=== PATIENT | male | born 1965 | race Caucasian/White ===

== ENCOUNTER 2018-03-26 12:07 | Emergency (ER) | payer OTHER ==
[2018-03-26] MEDS: ONDANSETRON (ODT) 4 MG TAB ODT (12:38)
[2018-03-26] MEDS: HYDROCODONE/APAP (5/325) TAB PO (12:39)
[2018-03-26] MEDS: IBUPROFEN 800 MG TAB PO (13:41)
== END 2018-03-26 14:01 | disposition home or self-care (01) ==
LOC: FTE 12:07
DX: S82.832A Other fracture of upper and lower end of left fibula, initial encounter for closed fracture (principal); X58.XXXA Exposure to other specified factors, initial encounter; Y92.480 Sidewalk as the place of occurrence of the external cause
CPT/HCPCS: 29515; 73562; 73610; 73630-LT; 99283-25

== ENCOUNTER 2018-05-12 16:33 | Emergency (ER) | payer OTHER | END 2018-05-12 20:39 | disposition home or self-care (01) | LOC: FTE 16:33 | DX: Z46.89 Encounter for fitting and adjustment of other specified devices (principal); F17.210 Nicotine dependence, cigarettes, uncomplicated | CPT/HCPCS: 73610; 99283-25 ==

== ENCOUNTER 2018-09-05 10:41 | Emergency (ER) | payer OTHER ==
[2018-09-05] MEDS: SOD CHLORIDE 0.9% 1,000 ML IV (11:14)
[2018-09-05] MEDS: ONDANSETRON 4 MG INJ IV (11:14)
[2018-09-05] MEDS: HYDROmorphONE 1 MG/ML SYG IV (11:15)
[2018-09-05 11:20] LABS: ADD MAN DIFF? NO
[2018-09-05 11:24] LABS: BASOPHIL # 0.1 10^3/ul (0.0-0.1); BASOPHILS % 0.5 % (0.0-2.0); EOSINOPHILS # 0.2 10^3/ul (0.0-0.5); EOSINOPHILS % 1.2 % (0.0-7.0); HEMOGLOBIN 15.8 g/dl (14.0-18.0); LYMPHOCYTES # 2.8 10^3/ul (0.8-2.9); LYMPHOCYTES % 16.4 % (15.0-51.0); MEAN CORPUSCULAR HEMOGLOBIN 29.4 pg (29.0-33.0); MEAN CORPUSCULAR HGB CONC 32.9 g/dl (32.0-37.0); MEAN CORPUSCULAR VOLUME 89.4 fl (82.0-101.0); MEAN PLATELET VOLUME 10.7 fl (7.4-10.4); MONOCYTE # 0.7 10^3/ul (0.3-0.9); MONOCYTES % 3.8 % (0.0-11.0); NEUTROPHIL # 13.1 10^3/ul (1.6-7.5); NEUTROPHILS % 77.6 % (39.0-77.0); PLATELET COUNT 186 10^3/UL (140-415); RED BLOOD COUNT 5.37 10^6/ul (4.70-6.10); RED CELL DISTRIBUTION WIDTH 14.4 % (11.5-14.5)
[2018-09-05 11:24] LABS: WHITE BLOOD COUNT 16.9 10^3/ul (4.8-10.8)
[2018-09-05 11:44] LABS: ALANINE AMINOTRANSFERASE 30 IU/L (13-69); ALBUMIN 4.6 g/dl (3.3-4.9); ALBUMIN/GLOBULIN RATIO 1.43; ALKALINE PHOSPHATASE 76 IU/L (42-121); ANION GAP 12 (5-13); ASPARTATE AMINO TRANSFERASE 26 IU/L (15-46); BILIRUBIN,INDIRECT 0.2 mg/dl (0-1.1); BILIRUBIN,TOTAL 0.2 mg/dl (0.2-1.3); BLOOD UREA NITROGEN 21 mg/dl (7-20); CARBON DIOXIDE 24 mmol/L (21-31); CHLORIDE 103 mmol/L (97-110); CREATININE 0.84 mg/dl (0.61-1.24); Estimated GFR > 60 mL/min (>60); GLUCOSE 139 mg/dl (70-220); LIPASE 99 U/L (23-300); POTASSIUM 4.9 mmol/L (3.5-5.1); SODIUM 139 mmol/L (135-144); TOTAL PROTEIN 7.8 g/dl (6.1-8.1)
[2018-09-05 11:48] LABS: LACTIC ACID 2.7 mmol/L (0.5-2.0)
[2018-09-05] MEDS: SOD CHLORIDE 0.9% 100 ML (12:12)
[2018-09-05] MEDS: IOHEXOL 100 ML (12:12)
[2018-09-05 12:23] LABS: INR 0.78; PT RATIO 0.9
[2018-09-05 12:24] LABS: PARTIAL THROMBOPLASTIN TIME 20.7 Sec (23.0-35.0)
[2018-09-05 12:40] LABS: ADD UMIC YES; UR ASCORBIC ACID NEGATIVE (NEGATIVE); UR BILIRUBIN (Dip) NEGATIVE (NEGATIVE); UR BLOOD (Dip) 2+ mg/dL (NEGATIVE); UR CLARITY CLEAR (CLEAR); UR COLOR YELLOW (YELLOW); UR GLUCOSE (Dip) NEGATIVE (NEGATIVE); UR KETONES (Dip) NEGATIVE (NEGATIVE); UR LEUKOCYTE ESTERASE (Dip) NEGATIVE Leu/ul (NEGATIVE); UR NITRITE (Dip) NEGATIVE (NEGATIVE); UR RBC 0 /HPF (0-5); UR SPECIFIC GRAVITY (Dip) 1.033 (1.003-1.030); UR TOTAL PROTEIN (Dip) NEGATIVE (NEGATIVE); UR UROBILINOGEN (Dip) NEGATIVE (NEGATIVE); UR WBC 0 /HPF (0-5)
[2018-09-05 12:48] LABS: TROPONIN-I < 0.012 ng/ml (0.000-0.120)
[2018-09-05] MEDS: SODIUM CHLORIDE 0.9% 1L BAG IV* (12:48)
[2018-09-05] MEDS: PIPER-TAZO 3.375 GM IV (PMX) 100 ML IVPB (12:49)
[2018-09-05] MEDS: FAMOTIDINE 20 MG INJ IV (15:09)
[2018-09-05] MEDS: HYDROmorphONE 2 MG/ML SYG IV (15:10)
[2018-09-05] MEDS: KETOROLAC 15 MG INJ IV (15:10)
== END 2018-09-05 16:26 | disposition left against medical advice (07) ==
LOC: E/R 10:41
DX: R10.84 Generalized abdominal pain (principal); R74.0 Nonspecific elevation of levels of transaminase and lactic acid dehydrogenase [LDH]; F17.210 Nicotine dependence, cigarettes, uncomplicated
CPT/HCPCS: 36415; 71045; 75635; 80053; 81001; 83605; 83690; 84484; 85025; 85610; 85730; 87040; 87086; 93005; 96365; 96375; 96376; 99285-25